=== PATIENT | male | born 1995 | race African-American/Black ===

== ENCOUNTER 2022-08-31 00:08 | Emergency (ER) | payer SELFPAY ==
[~2022-08-31] VITALS: Ht 180.3 cm; Wt 80.0 kg
[2022-08-31 00:53] LABS: EOSINOPHILS % 1.7 % (0.0-5.0); HEMATOCRIT. 44.1 % (42.0-52.0); HEMOGLOBIN. 15.2 g/dL (14.0-18.0); LYMPHOCYTES % 48.3 % (20.0-50.0); MEAN CORPUSCULAR HEMOGLOBIN 30.5 pg (28.0-32.0); MEAN CORPUSCULAR VOLUME 88.6 fL (80.0-94.0); MEAN PLATELET VOLUME 9.8 fl (7.4-10.4); MONOCYTES % 8.4 % (2.0-8.0); NEUTROPHILS % 39.6 % (40.0-76.0); PLATELET 142 x1000/uL (130-400); RED BLOOD CELL COUNT 4.98 mill/uL (4.7-6.1); RED CELL DISTRIBUTION WIDTH 13.6 % (11.6-14.6)
[2022-08-31 00:59] LABS: CHLORIDE 109 mEq/L (98-107)
[2022-08-31 01:07] LABS: CREATINE KINASE 529 IU/L (39-308); ETHANOL BLOOD 205 mg/dL
[2022-08-31] MEDS ORDERED: SODIUM CHLORIDE 0.9% 1,000 ML IV ONE (01:15)
[2022-08-31 05:00] VITALS: BP 101/63
== END 2022-08-31 07:23 | disposition left against medical advice (07) ==
LOC: EDBD 00:08 → ER 00:08
DX: T51.0X1A Toxic effect of ethanol, accidental (unintentional), initial encounter (principal); X58.XXXA Exposure to other specified factors, initial encounter
CPT/HCPCS: 36415; 80053; 80320; 82140; 82550; 85025; 96360; 99285; J7030; Z7610; G0480